=== PATIENT | female | born 1985 | race Caucasian/White ===

== ENCOUNTER 2019-07-20 14:17 | Emergency (ER) | payer OTHER ==
[~2019-07-20] VITALS: Ht 167 cm; Wt 87.0 kg
[2019-07-20] MEDS ORDERED: NS IV 1000 ML 1,000 ML IV SCH (14:45)
[2019-07-20 14:49] LABS: BASOPHILS % (AUTO) 1 % (0-10); EOSINOPHILS # (AUTO) 0.1 10^3/uL (0.0-0.3); EOSINOPHILS % (AUTO) 1 % (0-10); HEMATOCRIT 39 % (35-52); LYMPHOCYTES # (AUTO) 1.8 X 10^3 (1.0-4.0); LYMPHOCYTES % (AUTO) 21 % (12-44); MEAN CORPUSCULAR HEMOGLOBIN 29 PG (25-34); MEAN CORPUSCULAR HGB CONC 34 G/DL (32-36); MEAN CORPUSCULAR VOLUME 87 FL (80-99); MEAN PLATELET VOLUME 9.7 FL (7.4-10.4); MONOCYTES # (AUTO) 0.6 X 10^3 (0.0-1.0); MONOCYTES % (AUTO) 7 % (0-12); NEUTROPHILS # (AUTO) 5.8 X 10^3 (1.8-7.8); NEUTROPHILS % (AUTO) 70 % (42-75); PLATELET COUNT 245 10^3/uL (130-400); RED CELL DISTRIBUTION WIDTH 13.4 % (10.0-14.5); WHITE BLOOD COUNT 8.2 10^3/uL (4.3-11.0)
[2019-07-20 15:07] LABS: ALBUMIN 4.5 GM/DL (3.2-4.5); BILIRUBIN,TOTAL 0.3 MG/DL (0.1-1.0); CALCIUM 9.1 MG/DL (8.5-10.1); CREATININE SERUM 1.05 MG/DL (0.60-1.30); TOTAL PROTEIN 7.8 GM/DL (6.4-8.2)
[2019-07-20 15:13] LABS: ERYTHROCYTE SEDIMENTATION RATE 18 MM/HR (0-20)
[2019-07-20] MEDS ORDERED: NS 100 ML (IVPB) BAG IV ONE (15:15)
[2019-07-20] MEDS ORDERED: IOHEXOL 350 MG/ML 100 ML (OMNIPAQUE 350) VIAL IV ONE (15:15)
[2019-07-20] MEDS ORDERED: HOLD METFORMIN - RECEIVED CONTRAST 20 ML VIAL IV SCH (15:15)
--- NOTE | 2019-07-20 15:27 | Diagnostic Imaging Report ---
EXAMINATION: Portable chest. INDICATION: Left neck and face infection. FINDINGS: Lungs demonstrate no focal infiltrate or evidence of consolidation. There is no effusion. There is no pneumothorax. Heart size and mediastinal contours appear appropriate and pulmonary vascularity appears normal. No acute or suspicious osseous abnormality evident. There is some artifact related to the patient's hair. There is no soft tissue gas evident. IMPRESSION: No radiographic evidence of an acute cardiopulmonary process. Dictated by: Dictated on workstation # [id number]
--- NOTE | 2019-07-20 15:44 | ED EENT ---
History of Present Illness General Chief Complaint: Eye Problems Stated Complaint: L EYE SWELLING Nursing Triage Note: ARRIVED VIA AMB TO ROOM 05. 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 STATES SHE THINKS SHE IS FAILING ORAL TREATMENT. Source: patient Exam Limitations: no limitations History of Present Illness Date Seen by Provider: Jul 20, 2019 Time Seen by Provider: 15:40 Initial Comments This 33-year-old female presents with swelling of her left lower eyelid that began 2 days ago. The patient subsequently experienced significant swelling the left side of her face and marked left-sided cervical adenopathy. The patient denies fever or chills, injury to the area, associated erythema to the sclera of the left eye, pain with eye movement, ear nose throat or teeth pain, productive cough or shortness of breath, stiff neck or photophobia, or similar episode in past. The patient has been placed on Rocephin as well as Bactrim and Cefdinir without improvement. Allergies and Home Medications Allergies Coded Allergies: No Known Drug Allergies (Unverified , 07/20/19) Home Medications Doxycycline Hyclate 100 Mg Tablet, 100 MG PO BID Prescribed by: DERRICK OLIVER MD on 07/20/19 1630 Patient Home Medication List Home Medication List Reviewed: Yes Review of Systems Review of Systems Constitutional: No chills, No fever Eyes: See HPI; Denies Blurred Vision, Denies Pain, Denies Photophobia, Denies Previous Injury; Other (swelling to the left lower eyelid) Ears: No Symptoms Reported Nose: no symptoms reported Mouth: no symptoms reported Respiratory: no symptoms reported Cardiovascular: no symptoms reported Gastrointestinal: no symptoms reported; No abdominal pain, No nausea Musculoskeletal: No back pain, No neck pain Past [id number]-Mocwje Hx Past Med/Social Hx: Reviewed Nursing Past Med/Soc Hx Patient Social History Alcohol Use: Occasionally Uses Recreational Drug Use: No Smoking Status: Never a Smoker Recent Foreign Travel: No Contact w/Someone Who Travel: No Recent Infectious Disease Expo: No Recent Hopitalizations: No Physical Abuse: No Sexual Abuse: No Mistreated: No Fear: No Seasonal Allergies Seasonal Allergies: No Past Medical History Surgeries: No Respiratory: No Cardiac: No Neurological: No Genitourinary: No Gastrointestinal: No Musculoskeletal: No Endocrine: No HEENT: No Cancer: No Psychosocial: No Integumentary: No Physical Exam Vital Signs Vital Signs - First Documented 07/20/19 14:20 Temp 37.1 Pulse 83 Resp 16 B/P (MAP) 148/91 (110) Pulse Ox 100 O2 Delivery Room Air Height, Weight, BMI Height: '" Weight: lbs. oz. kg; 31.00 BMI Method: General Appearance: WD/WN, mild distress Eyes: left eye lid inflammation (left lower eyelid has slight erythema without evidence of foreign body, hordeolum, or injury) Ears: bilateral ear auricle normal, bilateral ear TM normal Nose: normal inspection Mouth/Throat: normal mouth inspection, pharynx normal; No dental tenderness Neck: non-tender, full range of motion, supple, lymphadenopathy (L) Cardiovascular: normal peripheral pulses, regular rate, rhythm Respiratory: chest non-tender, lungs clear Gastrointestinal: normal bowel sounds, non tender Neurologic/Psychiatric: no motor/sensory deficits, alert, normal mood/affect, oriented x 3 Skin: normal color, warm/dry Progress/Results/Core Measures Results/Orders Lab Results Laboratory Tests Test 07/20/19 14:35 Range/Units White Blood Count 8.2 4.3-11.0 10^3/uL Red Blood Count 4.45 4.35-5.85 10^6/uL Hemoglobin 13.0 11.5-16.0 G/DL Hematocrit 39 35-52 % Mean Corpuscular Volume 87 80-99 FL Mean Corpuscular Hemoglobin 29 25-34 PG Mean Corpuscular Hemoglobin Concent 34 32-36 G/DL Red Cell Distribution Width 13.4 10.0-14.5 % Platelet Count 245 130-400 10^3/uL Mean Platelet Volume 9.7 7.4-10.4 FL Neutrophils (%) (Auto) 70 42-75 % Lymphocytes (%) (Auto) 21 12-44 % Monocytes (%) (Auto) 7 0-12 % Eosinophils (%) (Auto) 1 0-10 % Basophils (%) (Auto) 1 0-10 % Neutrophils # (Auto) 5.8 1.8-7.8 X 10^3 Lymphocytes # (Auto) 1.8 1.0-4.0 X 10^3 Monocytes # (Auto) 0.6 0.0-1.0 X 10^3 Eosinophils # (Auto) 0.1 0.0-0.3 10^3/uL Basophils # (Auto) 0.0 0.0-0.1 10^3/uL Erythrocyte Sedimentation Rate 18 0-20 MM/HR Sodium Level 137 135-145 MMOL/L Potassium Level 4.0 3.6-5.0 MMOL/L Chloride Level 108 H 98-107 MMOL/L Carbon Dioxide Level 20 L 21-32 MMOL/L Anion Gap 9 5-14 MMOL/L Blood Urea Nitrogen 7 7-18 MG/DL Creatinine 1.05 0.60-1.30 MG/DL Estimat Glomerular Filtration Rate 60 BUN/Creatinine Ratio 7 Glucose Level 104 70-105 MG/DL Lactic Acid Level 0.81 0.50-2.00 MMOL/L Calcium Level 9.1 8.5-10.1 MG/DL Corrected Calcium 8.7 8.5-10.1 MG/DL Total Bilirubin 0.3 0.1-1.0 MG/DL Aspartate Amino Transf (AST/SGOT) 16 5-34 U/L Alanine Aminotransferase (ALT/SGPT) 17 0-55 U/L Alkaline Phosphatase 64 40-136 U/L C-Reactive Protein High Sensitivity 0.17 0.00-0.50 MG/DL Total Protein 7.8 6.4-8.2 GM/DL Albumin 4.5 3.2-4.5 GM/DL My Orders Orders - DERRICK OLIVER MD Blood Culture (07/20/19 14:32) Tick Panel With Lyme Eia (07/20/19 14:32) Cbc With Automated Diff (07/20/19 14:32) Comprehensive Metabolic Panel (07/20/19 14:32) Erythrocyte Sedimentation Rate (07/20/19 14:32) Hs C Reactive Protein (07/20/19 14:32) Lactic Acid Analyzer (07/20/19 14:32) Ns Iv 1000 Ml (Sodium Chloride 0.9%) (07/20/19 14:45) Ed Iv/Invasive Line Start (07/20/19 14:39) Bartonella Group (07/20/19 14:35) Chest 1 View, Ap/Pa Only (07/20/19 14:47) Ct Head W Wo/Neck W (07/20/19 14:59) Iohexol Injection (Omnipaque 350 Mg/Ml 1 (07/20/19 15:15) Received Contrast (Hold Metformin- Contr (07/20/19 15:15) Ns (Ivpb) (Sodium Chloride 0.9% Ivpb Bag (07/20/19 15:15) Doxycycline Hyclate Tablet (Vibramycin T (07/20/19 16:45) Medications Given in ED Vital Signs/I&O 07/21/19 00:00 Intake Total 1000 ml Balance 1000 ml Blood Pressure Mean: 110 Progress Progress Note : Time: 16:25 Progress Note The patient's workup demonstrated normal white count and sedimentation rate. The complete metabolic panel is essentially within normal limits. The patient's CT of the head with and the neck without demonstrated no evidence of an abscess and moderate cervical adenopathy. Toprol down state was undertaken with the infectious disease fellow at . Her questions and comments were incorporated in the patient's workup and evaluation. The patient was started on doxycycline her milligrams twice a day. She was asked come back tomorrow if she is not improved. Departure Communication (Admissions) Time/Spoke to Admitting Phy: 16:28 Dr. Gomez. After conversation with Dr. Herbert as well as Dr. Gomez doxycycline 100 mg twice a day for 2 weeks was initiated. Impression Primary Impression: Cellulitis Qualified Codes: L03.211 - Cellulitis of face Disposition: 01 HOME, SELF-CARE Condition: Unchanged Departure-Patient Inst. Decision time for Depature: 16:28 Referrals: JOSIE GOMEZ MD (PCP/Family) Primary Care Physician Patient Instructions: Cellulitis (Skin Infection), Adult (DC) Add. Discharge Instructions: Doxycycline 100 mg twice a day. Continue with the Bactrim and the Cefdinir. Come back tomorrow if not improved. All discharge instructions reviewed with griselda terrazas and/or family. Voiced understanding. Scripts Doxycycline Hyclate (Doxycycline Hyclate) 100 Mg Tablet 100 MG PO BID for 14 Days, #30 TAB 0 Refills Prov: DERRICK OLIVER MD 07/20/19 DERRICK OLIVER MD Jul 20, 2019 15:44
--- NOTE | 2019-07-20 15:55 | Diagnostic Imaging Report ---
INDICATION: Left-sided face and chest swelling. Lymphadenopathy. COMPARISON: No comparison available. FINDINGS: CT of the head demonstrates no evidence of an acute intracranial abnormality. There is no evidence of intracranial hemorrhage. There is no intracranial mass effect or shift. There is no hydrocephalus. There is no abnormal extra-axial fluid collection. Frey and white differentiations are maintained. There is no abnormal low density within the leisa or within the cerebellum. The mastoid air cells appear clear. The paranasal sinuses appear clear. CT of the neck demonstrates no evidence of an intraorbital abnormality. The posterior nasopharynx and oropharynx appear appropriately symmetric. There is no displacement of the parapharyngeal fat planes. The base of the tongue and tonsillar pillars are unremarkable. No abnormal process evident within the prevertebral or retropharyngeal space. There is no thickening of the epiglottis. The vocal folds appear symmetric. The parotid, submandibular, and thyroid glands are unremarkable. The vascular structures of the neck demonstrate no significant stenosis. The jugular veins are patent. There are scattered bilateral cervical chain lymph nodes present as well as small submandibular lymph nodes. By CT imaging, there are no findings of pathologic lymph node enlargement. There is however some mild inflammatory-appearing stranding within the fat along the left sternocleidomastoid with some thickening of the left platysma muscle. There is no definable abscess. There is no soft tissue gas. The lung apices appear clear. Cervical spine demonstrates normal alignment. There are mild endplate changes and uncovertebral spurs at C5-C6. IMPRESSION: 1. No CT evidence of an acute intracranial abnormality. 2. Aerodigestive tract appears approximately symmetric. 3. Orbital contents are unremarkable. 4. Numerous but nonenlarged scattered bilateral cervical chain lymph nodes. No pathologic lymph node enlargement is evident. 5. No focal fluid collection or evidence of abscess. 6. Minimal inflammatory stranding within the left neck along the anterior margins of the sternocleidomastoid with some adjacent thickening of the left platysma. This is likely infectious/inflammatory in nature. Dictated by: Dictated on workstation # [id number]
[2019-07-20] MEDS ORDERED: DOXY100T2 PO (16:30)
[2019-07-20 16:40] VITALS: BP 145/80
[2019-07-20] MEDS ORDERED: DOXYCYCLINE 100 MG (VIBRAMYCIN) TABLET PO ONE (16:45)
== END 2019-07-20 16:43 | disposition home or self-care (01) ==
LOC: EDUNIT# 14:17 → ER 14:18
DX: L03.211 Cellulitis of face (principal)
CPT/HCPCS: 36415; 70470; 70491; 71045; 80053; 83605; 85025; 85652; 86141; 86611; 86618; 86666; 86668; 86757; 87040

== ENCOUNTER → 2020-03-17 | Outpatient (CLI) | payer OTHER ==
[~2020-03-17] MED LIST: DOXY100T2 PO
== END ==
LOC: LAB FS 12:34
PROVIDERS: ATTEND Family Medicine
DX: Z20.828 Contact with and (suspected) exposure to other viral communicable diseases (principal)
CPT/HCPCS: 87635

== ENCOUNTER → 2020-03-18 | Outpatient (CLI) | payer OTHER | LOC: LABNPT 06:30 | PROVIDERS: ATTEND Family Medicine | DX: Z11.59 Encounter for screening for other viral diseases (principal) ==